=== PATIENT | male | born 1950 | race Caucasian/White ===

== ENCOUNTER 2017-04-03 02:46 | Emergency (ER) | payer OTHER ==
[~2017-04-03] VITALS: Ht 190.5 cm; Wt 125.0 kg
[~2017-04-03 02:46] MED LIST: ASPI81 PO; ENAL20TA PO; OMEP40CA2 PO; POTA1080 PO; PROC1TAB8 PO; SIMV20 PO; TEST1GEL5
[2017-04-03 02:50] VITALS: BP 187/90; PULSE 63; RESP 16; TEMP 97.7; O2SAT 97
[2017-04-03] MEDS ORDERED: SODIUM CHLOR 0.9% 1000 ML INJ 1,000 ML IV SCH (03:12)
[2017-04-03] MEDS ORDERED: MORPHINE SULFATE 4 MG/ML INJ IV PUSH ONE (03:15)
[2017-04-03] MEDS ORDERED: FAMOTIDINE 20 MG/2 ML VIAL IV PUSH ONE (03:15)
[2017-04-03] MEDS ORDERED: SODIUM CHLORIDE 0.9% FLUSH 10 ML FLUSH IV FLUSH PRN (03:15)
[2017-04-03] MEDS ORDERED: ONDANSETRON HCL 4 MG/2 ML VIAL IVP ONE (03:15)
--- NOTE | 2017-04-03 03:18 | PD ---
HPI Chief Complaint: GI Complaint Time Seen by Provider: 03:04 Travel History International Travel<30 days: No Contact w/Intl Traveler<30days: No Traveled to known affect area: No History of Present Illness HPI The patient is a 67-year-old male who presents emergency department for abdominal pain. The patient's abdominal pain started one week ago after he had several large meals of Father's Day weekend. The patient then developed some epigastric pain that is nonradiating. He did complain of mild bloating and some mild constipation, took Dulcolax which resolved his constipation. However, he continues to have some epigastric pain. 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 The patient stated he had a laboratory evaluation which was unremarkable. He was going to have an outpatient CT and ultrasound of the abdomen, however, his creatinine was mildly elevated and they did not order the test. He does have a history of previous endoscopy and colonoscopy, states his last one was a urine after ago, was normal per his report. He does have a remote history of GERD. He denies any known history pancreatitis, biliary colic, symptomatic cholelithiasis, or previous abdominal surgeries. He denies any fever, chills, or sweats. He denies any associated chest pain or shortness of breath. Symptoms are moderate, occasionally exacerbated by eating, and there are no current alleviating factors. PFSH Past Medical History Arthritis: Yes (L4-L5) Heart Rhythm Problems: No Cardiac Catheterization: No Cardiovascular Problems: Yes (HTN) High Cholesterol: Yes Congestive Heart Failure: No Cerebrovascular Accident: No Diabetes: No Diminished Hearing: No Gastrointestinal Disorders: Yes GERD: Yes (HX OF ) Hypertension: Yes Kidney Stones: Yes (LITHOTRIPSY) Respiratory: Yes (SLEEP APNEA) Immunizations Current: Yes Myocardial Infarction: No Sleep Apnea: Yes (CPAP) Triglycerides - High: Yes Past Surgical History Coronary Artery Bypass Graft: No Tonsillectomy: Yes Other Surgery: Yes (LITHOTRIPSY) Social History Alcohol Use: Yes (OCCASSIONAL) Tobacco Use: No Substance Use: No Allergies-Medications (Allergen,Severity, Reaction): Coded Allergies: Lidocaine (Verified Allergy, Severe, Vertigo, 04/03/17) Codeine (Verified Adverse Reaction, Mild, Nausea/Vomiting, 6/26/17) Reported Meds & Prescriptions Reported Meds & Active Scripts Active Reported Vascepa (Icosapent) 1 Gm Cap 1 Gm PO BID Enalapril (Enalapril Maleate) 20 Mg Tab 20 Mg PO BID Aspirin 81 Mg Chew 81 Mg CHEW DAILY Review of Systems Except as stated in HPI: all other systems reviewed are Neg General / Constitutional: No: Fever Cardiovascular: No: Chest Pain or Discomfort Respiratory: No: Shortness of Breath Gastrointestinal: Positive: Nausea, Abdominal Pain, Constipation, No: Vomiting , Diarrhea Genitourinary: No: Dysuria Physical Exam Narrative GENERAL: Awake, alert, pleasant 67-year-old male who appears his stated age is in no acute respiratory distress. SKIN: Focused skin assessment warm/dry. HEAD: Atraumatic. Normocephalic. EYES: Pupils equal and round. No scleral icterus. No injection or drainage. ENT: No nasal bleeding or discharge. Mucous membranes pink and moist. NECK: Trachea midline. No JVD. CARDIOVASCULAR: Regular rate and rhythm. No murmur appreciated. RESPIRATORY: No accessory muscle use. Clear to auscultation. Breath sounds equal bilaterally. GASTROINTESTINAL: Abdomen soft, mild epigastric tenderness. No rebound tenderness, guarding, rigidity. MUSCULOSKELETAL: No obvious deformities. No clubbing. No cyanosis. No edema. NEUROLOGICAL: Awake and alert. No obvious cranial nerve deficits. Motor grossly within normal limits. Normal speech. PSYCHIATRIC: Appropriate mood and affect; insight and judgment normal. Data Data Last Documented VS Vital Signs Date Time Temp Pulse Resp B/P Pulse Ox O2 Delivery O2 Flow Rate FiO2 04/03/17 03:29 16 95 Room Air 04/03/17 03:19 73 111/58 04/03/17 02:50 97.7 Orders Complete Blood Count With Diff (04/03/17 03:12) Comprehensive Metabolic Panel (04/03/17 03:12) Lipase (04/03/17 03:12) Lactic Acid (04/03/17 03:12) Ct Abd/Pel W/O Iv Contrast (04/03/17 03:12) Iv Access Insert/Monitor (04/03/17 03:12) Ecg Monitoring (04/03/17 03:12) Oximetry (04/03/17 03:12) Morphine Inj (Morphine Inj) (04/03/17 03:15) Ondansetron Inj (Zofran Inj) (04/03/17 03:15) Sodium Chlor 0.9% 1000 Ml Inj (Ns 1000 M (04/03/17 03:12) Sodium Chloride 0.9% Flush (Ns Flush) (04/03/17 03:15) Electrocardiogram (04/03/17 03:12) Famotidine Inj (Pepcid Inj) (04/03/17 03:15) Troponin I (04/03/17 03:12) Labs Laboratory Tests Test 04/03/17 03:30 White Blood Count 7.4 TH/MM3 Red Blood Count 5.94 MIL/MM3 Hemoglobin 17.2 GM/DL Hematocrit 50.9 % Mean Corpuscular Volume 85.7 FL Mean Corpuscular Hemoglobin 29.0 PG Mean Corpuscular Hemoglobin 33.8 % Concent Red Cell Distribution Width 13.7 % Platelet Count 233 TH/MM3 Mean Platelet Volume 9.0 FL Neutrophils (%) (Auto) 65.0 % Lymphocytes (%) (Auto) 23.8 % Monocytes (%) (Auto) 9.0 % Eosinophils (%) (Auto) 1.8 % Basophils (%) (Auto) 0.4 % Neutrophils # (Auto) 4.8 TH/MM3 Lymphocytes # (Auto) 1.8 TH/MM3 Monocytes # (Auto) 0.7 TH/MM3 Eosinophils # (Auto) 0.1 TH/MM3 Basophils # (Auto) 0.0 TH/MM3 CBC Comment DIFF FINAL Differential Comment Sodium Level 141 MEQ/L Potassium Level 4.0 MEQ/L Chloride Level 106 MEQ/L Carbon Dioxide Level 28.2 MEQ/L Anion Gap 7 MEQ/L Blood Urea Nitrogen 20 MG/DL Creatinine 1.63 MG/DL Estimat Glomerular Filtration 42 ML/MIN Rate Random Glucose 98 MG/DL Lactic Acid Level 1.2 mmol/L Calcium Level 9.7 MG/DL Total Bilirubin 0.7 MG/DL Aspartate Amino Transf 27 U/L (AST/SGOT) Alanine Aminotransferase 33 U/L (ALT/SGPT) Alkaline Phosphatase 94 U/L Troponin I LESS THAN 0.02 NG/ML Total Protein 8.0 GM/DL Albumin 4.0 GM/DL Lipase 142 U/L MDM Medical Decision Making Medical Screen Exam Complete: Yes Emergency Medical Condition: Yes Medical Record Reviewed: Yes Interpretation(s) EKG reveals normal sinus rhythm with a rate of 65. Inverted T-wave noted in lead 3. Laboratory Tests Test 04/03/17 03:30 White Blood Count 7.4 TH/MM3 Red Blood Count 5.94 MIL/MM3 Hemoglobin 17.2 GM/DL Hematocrit 50.9 % Mean Corpuscular Volume 85.7 FL Mean Corpuscular Hemoglobin 29.0 PG Mean Corpuscular Hemoglobin 33.8 % Concent Red Cell Distribution Width 13.7 % Platelet Count 233 TH/MM3 Mean Platelet Volume 9.0 FL Neutrophils (%) (Auto) 65.0 % Lymphocytes (%) (Auto) 23.8 % Monocytes (%) (Auto) 9.0 % Eosinophils (%) (Auto) 1.8 % Basophils (%) (Auto) 0.4 % Neutrophils # (Auto) 4.8 TH/MM3 Lymphocytes # (Auto) 1.8 TH/MM3 Monocytes # (Auto) 0.7 TH/MM3 Eosinophils # (Auto) 0.1 TH/MM3 Basophils # (Auto) 0.0 TH/MM3 CBC Comment DIFF FINAL Differential Comment Sodium Level 141 MEQ/L Potassium Level 4.0 MEQ/L Chloride Level 106 MEQ/L Carbon Dioxide Level 28.2 MEQ/L Anion Gap 7 MEQ/L Blood Urea Nitrogen 20 MG/DL Creatinine 1.63 MG/DL Estimat Glomerular Filtration 42 ML/MIN Rate Random Glucose 98 MG/DL Lactic Acid Level 1.2 mmol/L Calcium Level 9.7 MG/DL Total Bilirubin 0.7 MG/DL Aspartate Amino Transf 27 U/L (AST/SGOT) Alanine Aminotransferase 33 U/L (ALT/SGPT) Alkaline Phosphatase 94 U/L Troponin I LESS THAN 0.02 NG/ML Total Protein 8.0 GM/DL Albumin 4.0 GM/DL Lipase 142 U/L Last Impressions Abdomen/Pelvis CT 04/03/172 Signed Impressions: Service Date/Time: Monday, April 03, 2017 03:35 - CONCLUSION: 1. Multiple bilateral renal stones and renal cysts without hydronephrosis or ureteral stones, similar in appearance when compared to prior renal colic CT June 2016. 2. Mild heather appearance to the central mesentery of the abdomen which is nonspecific finding, but suggest possible mesenteritis. Huseyin Hunter MD Differential Diagnosis Differential diagnosis includes gastritis, peptic ulcer disease, pancreatitis, biliary colic, cholelithiasis, cholecystitis, hiatal hernia, inferior myocardial infarction, mesenteric ischemia. Narrative Course IV was established, labs are drawn and sent, and the patient was placed on cardiac telemetry monitoring and continuous pulse oximetry monitoring. EKG was ordered and interpreted. 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 Noncontrast CT of the abdomen and pelvis was ordered. The patient's labs are unremarkable, lipase and LFTs are unremarkable, creatinine is mildly elevated at 1.63. White count is normal. Patient is afebrile. Troponin is negative. CT reveals polycystic kidney disease and stable appearance of the kidney stones. There is a "heather appearance "to the mesentery, may suggest mesenteritis. The patient will be discharged home on pain medications, will be provided a copy of his CT results and lab results at discharge. He is advised to follow-up with his riverboat captain today. Diagnosis Primary Impression: Abdominal pain Qualified Code: R10.13 - Epigastric pain Additional Impression: Idiopathic sclerosing mesenteritis Patient Instructions: General Instructions Additional Instructions: Please provide the patient a copy of his CT results and lab results at discharge. Follow-up with her riverboat captain. Return if symptoms worsen or progress. Diet as tolerated. Med/Other Pt SpecificInfo: Prescription(s) given Scripts Hydrocodone-Acetaminophen ([place])5-325 mg Tab1 Tab PO Q6H PRN (PAIN) #15 TAB Ref 0 Prov:Luc Villa MD 04/03/17 Disposition: DISCHARGE HOME Condition: Stable Luc Villa MD Apr 03, 2017 03:18
[2017-04-03 03:19] VITALS: BP 111/58; PULSE 73; RESP 16; O2SAT 95
[2017-04-03] MEDS ORDERED: ASPI81CH CHEW (03:25)
[2017-04-03] MEDS ORDERED: ICOS1CAP PO (03:25)
[2017-04-03] MEDS ORDERED: ENAL20TA PO (03:25)
[2017-04-03 03:29] VITALS: RESP 16; O2SAT 95
[2017-04-03 03:42] LABS: AUTOMATED NEUTROPHIL # 4.8 TH/MM3 (1.8-7.7); BASOPHIL % 0.4 % (0.0-2.0); EOSINOPHIL # 0.1 TH/MM3 (0-0.4); EOSINOPHIL % 1.8 % (0.0-4.0); HEMATOCRIT 50.9 % (39.0-51.0); HEMO FLAGS DIFF FINAL; LYMPH % 23.8 % (9.0-44.0); LYMPHOCYTE # 1.8 TH/MM3 (1.0-4.8); MEAN CELL VOLUME 85.7 FL (80.0-100.0); MEAN CORPUSCULAR HGB CONC 33.8 % (32.0-36.0); PLATELET COUNT 233 TH/MM3 (150-450); RED BLOOD COUNT 5.94 MIL/MM3 (4.50-5.90); RED CELL DISTRIBUTION WIDTH 13.7 % (11.6-17.2); WHITE BLOOD COUNT 7.4 TH/MM3 (4.0-11.0)
[2017-04-03 04:09] LABS: ALKALINE PHOSPHATASE 94 U/L (45-117); TOTAL BILIRUBIN ADULT 0.7 MG/DL (0.2-1.0)
[2017-04-03 04:30] LABS: ALT (GPT) 33 U/L (12-78); ANION GAP 7 MEQ/L (5-15); AST (GOT) 27 U/L (15-37); BICARBONATE 28.2 MEQ/L (21.0-32.0); BLOOD UREA NITROGEN 20 MG/DL (7-18); CHLORIDE 106 MEQ/L (98-107); GLOMERULAR FILTRATION RATE 42 ML/MIN (>89); SODIUM (NA) 141 MEQ/L (136-145)
--- NOTE | 2017-04-03 04:52 | RADRPT ---
EXAM DATE/TIME: 04/03/2017 03:35 [facility] COMPARISON: CT ABDOMEN & PELVIS W/O CONTRAST, July 04, 2016, 4:46. INDICATIONS : Epigastric pain x 3 days. ORAL CONTRAST: No oral contrast ingested. RADIATION DOSE: 21.83 CTDIvol (mGy) MEDICAL HISTORY : Hypertension. Gastroesophageal reflux disease. SURGICAL HISTORY : Tonsillectomy. ENCOUNTER: Initial ACUITY: 3 days PAIN SCALE: 4/10 LOCATION: epigastric TECHNIQUE: Volumetric scanning of the abdomen and pelvis was performed. Using automated exposure control and ad justment of the mA and/or kV according to patient size, radiation dose was kept as low as reasonably achievable to obtain optimal diagnostic quality images. DICOM format image data is available electro nically for review and comparison. FINDINGS: Prior renal colic CT in June 2016 are demonstrated bilateral renal cysts and bilateral calcified renal stones. On today's examination, the multiple bilateral renal cysts, including bilateral parap elvic cysts, are stable in appearance. One cyst the upper pole of the right kidney and a tiny cyst i n the cortex of the left kidney is hyperdense, unchanged. There are multiple calcified stones in the lower pole collecting system of both kidneys with the largest stone on the right-sided measuring 6 m m and the largest stone on the left side measuring 1.4 cm. The size of the stones and number of ston es and is stable. No evidence of hydronephrosis. No calcified stones in either ureter. No calcific ations within the lumen of the urinary bladder. Numerous tiny calcified phleboliths in the pelvis similar in configuration to prior exam. No evidenc e of free fluid. No dilated loops of small or large bowel. No calcified gallstones. The adrenal gl ands pancreas, and spleen are grossly unremarkable. No evidence of free fluid. The visualized lower lungs are clear. Degenerative changes of the lower lumbar spine. There is some mild increased density to the fat of the mesentery of the central abdomen (heather mesent norma); this suggests possible mesenteritis. CONCLUSION: 1. Multiple bilateral renal stones and renal cysts without hydronephrosis or ureteral stones, similar in appearance when compared to prior renal colic CT June 2016. 2. Mild heather appearance to the central mesentery of the abdomen which is nonspecific finding, but lacey ggest possible mesenteritis. Huseyin Hunter MD on April 03, 2017 at 4:45 Board Certified Radiologist. This report was verified electronically.
[2017-04-03] MEDS ORDERED: NORC5TAB PO (05:05)
--- NOTE | 2017-04-04 07:45 | EKG ---
Date Performed: 04/03/2017 Time Performed: 04:31:36 PTAGE: 67 years EKG: Sinus rhythm NORMAL ECG PREVIOUS TRACING : 07/04/2016 04.12 DOCTOR: Tanisha Souza Interpretating Date/Time 04/04/2017 07:42:27
== END 2017-04-03 05:25 | disposition home or self-care (01) ==
LOC: NEPE 02:46
DX: R10.13 Epigastric pain (principal); K65.4 Sclerosing mesenteritis; Q61.3 Polycystic kidney, unspecified; N20.0 Calculus of kidney; I10 Essential (primary) hypertension; E78.00 Pure hypercholesterolemia, unspecified; K21.9 Gastro-esophageal reflux disease without esophagitis; G47.30 Sleep apnea, unspecified; Z79.899 Other long term (current) drug therapy
CPT/HCPCS: 74176; 80053; 83605; 83690; 84484; 85025; 93005; 96374; 96375; 99285; J2270; J2405; J7030

== ENCOUNTER 2018-01-23 06:43 | Emergency (ER) | payer OTHER ==
[~2018-01-23] VITALS: Ht 190.5 cm; Wt 130.0 kg
[~2018-01-23 06:43] MED LIST changes: +ASPI-516 CHEW; -ASPI81 PO; +ICOS1CAP PO; +NORC5TAB PO; -OMEP40CA2 PO; -POTA1080 PO; -PROC1TAB8 PO; -SIMV20 PO; -TEST1GEL5
[2018-01-23 06:46] VITALS: BP 189/87; PULSE 82; RESP 18; TEMP 98.3; O2SAT 99
[2018-01-23] MEDS ORDERED: PANTOPRAZOLE SODIUM 40 MG VIAL IV PUSH ONE (07:15)
[2018-01-23] MEDS ORDERED: SODIUM CHLORIDE 0.9% FLUSH 10 ML FLUSH IVF PRN (07:15)
--- NOTE | 2018-01-23 07:17 | PD ---
HPI Chief Complaint: GI Complaint Time Seen by Provider: 07:08 Travel History International Travel<30 days: No Contact w/Intl Traveler<30days: No Traveled to known affect area: No History of Present Illness HPI 67 y/o male states over the past couple years he has been having issues with severe reflux with associated epigastric abdominal pain. He states that it has been worse over the past couple of days. He states Dr. Mayfield his GI doctor did a scope of his stomach 2 years ago and did not want to repeat it because he did not think much would change. He states he thinks it just showed reflux. He states that they did a HIDA scan and he followed with Dr. Espinoza as his EF was low but given his symptoms they elected to hold on surgery. He states he also regularly follows with Dr. Reid for routine cardiac workup after he had a syncopal event after receiving a GI cocktail with lidocaine a couple years ago. He states his last stress test was 2 months ago and was normal. He denies any significant cardiac history. He denies any associated chest pain or other concurrent complaints. Quality is burning. Severity is fluctuating and currently moderate. He denies other concurrent complaints at this time. Duration is intermittent over the past couple of years. PFSH Past Medical History Arthritis: Yes (L4-L5) Cardiovascular Problems: Yes (HTN) High Cholesterol: Yes Diminished Hearing: No Gastrointestinal Disorders: Yes GERD: Yes (HX OF ) Hypertension: Yes Kidney Stones: Yes (LITHOTRIPSY) Respiratory: Yes (SLEEP APNEA) Immunizations Current: Yes Sleep Apnea: Yes (CPAP) Triglycerides - High: Yes Past Surgical History Tonsillectomy: Yes Other Surgery: Yes (LITHOTRIPSY) Social History Alcohol Use: Yes (OCCASSIONAL) Tobacco Use: No Substance Use: No Allergies-Medications (Allergen,Severity, Reaction): Coded Allergies: lidocaine (Unverified Allergy, Severe, Vertigo, 01/23/18) codeine (Unverified Adverse Reaction, Mild, Nausea/Vomiting, 01/23/18) Reported Meds & Prescriptions Reported Meds & Active Scripts Active [place] (Hydrocodone-Acetaminophen) 5-325 mg Tab 1 Tab PO Q6H PRN Reported Vascepa (Icosapent) 1 Gm Cap 1 Gm PO BID Enalapril (Enalapril Maleate) 20 Mg Tab 20 Mg PO BID Aspirin 81 Mg Chew 81 Mg CHEW DAILY Review of Systems Except as stated in HPI: all other systems reviewed are Neg Physical Exam Narrative GENERAL: 67-year-old male in no apparent distress, Well-appearing SKIN: Focused skin assessment warm/dry. HEAD: Atraumatic. Normocephalic. EYES: Pupils equal and round. No scleral icterus. No injection or drainage. ENT: No nasal bleeding or discharge. Mucous membranes pink and moist. NECK: Trachea midline. CARDIOVASCULAR: Regular rate and rhythm. No murmur appreciated. RESPIRATORY: No accessory muscle use. Clear to auscultation. Breath sounds equal bilaterally. GASTROINTESTINAL: Abdomen soft, non-tender, nondistended. MUSCULOSKELETAL: No obvious deformities. No clubbing. No cyanosis. NEUROLOGICAL: Awake and alert. No obvious cranial nerve deficits. Motor grossly within normal limits. Normal speech. PSYCHIATRIC: Appropriate mood and affect; insight and judgment normal. Data Data Last Documented VS Vital Signs Date Time Temp Pulse Resp B/P (MAP) Pulse Ox O2 Delivery O2 Flow Rate FiO2 01/23/18 07:58 96 Room Air 01/23/18 06:46 98.3 82 18 189/87 (121) Orders Orders Electrocardiogram (01/23/18 07:08) B-Type Natriuretic Peptide (01/23/18 07:08) Ckmb (Isoenzyme) Profile (01/23/18 07:08) Complete Blood Count With Diff (01/23/18 07:08) Comprehensive Metabolic Panel (01/23/18 07:08) Magnesium (Mg) (01/23/18 07:08) Prothrombin Time / Inr (Pt) (01/23/18 07:08) Act Partial Throm Time (Ptt) (01/23/18 07:08) Troponin I (01/23/18 07:08) Lipase (01/23/18 07:08) Chest, Single Ap (01/23/18 07:08) Ecg Monitoring (01/23/18 07:08) Bilateral Bp Monitoring (01/23/18 07:08) Iv Access Insert/Monitor (01/23/18 07:08) Oximetry (01/23/18 07:08) Sodium Chloride 0.9% Flush (Ns Flush) (01/23/18 07:15) Us Abdomen Gallbladder (01/23/18 ) Pantoprazole Inj (Protonix Inj) (01/23/18 07:15) CKMB (01/23/18 07:15) CKMB% (01/23/18 07:15) Urinalysis - C+S If Indicated (01/23/18 08:46) Ct Abd/Pel W/O Iv Contrast (01/23/18 09:00) Ed Discharge Order (01/23/18 11:19) Labs Laboratory Tests Test 01/23/18 07:15 01/23/18 09:40 White Blood Count 6.2 TH/MM3 Red Blood Count 5.26 MIL/MM3 Hemoglobin 15.5 GM/DL Hematocrit 45.4 % Mean Corpuscular Volume 86.2 FL Mean Corpuscular Hemoglobin 29.5 PG Mean Corpuscular Hemoglobin Concent 34.2 % Red Cell Distribution Width 13.8 % Platelet Count 216 TH/MM3 Mean Platelet Volume 9.1 FL Neutrophils (%) (Auto) 66.6 % Lymphocytes (%) (Auto) 23.6 % Monocytes (%) (Auto) 7.6 % Eosinophils (%) (Auto) 1.6 % Basophils (%) (Auto) 0.6 % Neutrophils # (Auto) 4.1 TH/MM3 Lymphocytes # (Auto) 1.5 TH/MM3 Monocytes # (Auto) 0.5 TH/MM3 Eosinophils # (Auto) 0.1 TH/MM3 Basophils # (Auto) 0.0 TH/MM3 CBC Comment DIFF FINAL Differential Comment Prothrombin Time 10.6 SEC Prothromb Time International Ratio 1.0 RATIO Activated Partial Thromboplast Time 26.8 SEC Blood Urea Nitrogen 24 MG/DL Creatinine 1.73 MG/DL Random Glucose 109 MG/DL Total Protein 7.3 GM/DL Albumin 3.6 GM/DL Calcium Level 8.8 MG/DL Magnesium Level 1.8 MG/DL Alkaline Phosphatase 80 U/L Aspartate Amino Transf (AST/SGOT) 28 U/L Alanine Aminotransferase (ALT/SGPT) 26 U/L Total Bilirubin 0.6 MG/DL Sodium Level 143 MEQ/L Potassium Level 4.5 MEQ/L Chloride Level 111 MEQ/L Carbon Dioxide Level 23.4 MEQ/L Anion Gap 9 MEQ/L Estimat Glomerular Filtration Rate 40 ML/MIN Total Creatine Kinase 221 U/L Creatine Kinase MB 3.2 NG/ML Troponin I LESS THAN 0.02 NG/ML B-Type Natriuretic Peptide 29 PG/ML Lipase 153 U/L Urine Color YELLOW Urine Turbidity CLEAR Urine pH 7.0 Urine Specific [place] 1.015 Urine Protein NEG mg/dL Urine Glucose (UA) NEG mg/dL Urine Ketones NEG mg/dL Urine Occult Blood NEG Urine Nitrite NEG Urine Bilirubin NEG Urine Urobilinogen LESS THAN 2.0 MG/DL Urine Leukocyte Esterase NEG Urine RBC 1 /hpf Urine WBC LESS THAN 1 /hpf Urine Mucus FEW /lpf Microscopic Urinalysis Comment CULT NOT INDICATED MDM Medical Decision Making Medical Screen Exam Complete: Yes Emergency Medical Condition: Yes Medical Record Reviewed: Yes (Past history confirmed, recent records reviewed) Interpretation(s) CBC & BMP Diagram 01/23/18 07:15 Total Protein 7.3, Albumin 3.6, Calcium Level 8.8, Magnesium Level 1.8, Alkaline Phosphatase 80, Aspartate Amino Transf (AST/SGOT) 28, Alanine Aminotransferase (ALT/SGPT) 26, Total Bilirubin 0.6 Last 24 hours Impressions Abdomen/Pelvis CT 01/23/18 0900 Signed Impressions: Service Date/Time: Tuesday, January 23, 2018 09:06 - CONCLUSION: 1. Bilateral renal cysts some of which are complex. 2. Bilateral nonobstructing renal calculi. 3. [place] mesentery, stable. Gus Nixon MD Chest X-Ray 01/23/18 0708 Signed Impressions: Service Date/Time: Tuesday, January 23, 2018 07:31 - CONCLUSION: No acute disease. Gus Nixon MD Gall Bladder Ultrasound 01/23/18 0000 Signed Impressions: Service Date/Time: Tuesday, January 23, 2018 07:30 - CONCLUSION: 1. No cholelithiasis or sonographic evidence for acute cholecystitis as questioned. 2. Mild prominence of the right renal collecting system in this patient with history of renal calculi. Consider CT examination for further evaluation, particularly if patient's abdominal pain is consistent with renal colic. 3. Echogenic enlarged liver consistent with hepatic steatosis versus medical liver disease. Vamshi Dixon MD Differential Diagnosis Gastritis, cholelithiasis, musculoskeletal, atypical cardiac Narrative Course Will check blood work, chest x-ray, EKG, gallbladder ultrasound and dose with Protonix and reevaluate ED workup shows mild increase in renal insufficiency. Gallbladder ultrasound shows area of dilation with kidney so we will proceed with CT imaging CT imaging stable. Patient updated. Patient has been having ongoing intermittent epigastric pain with belching for the past couple of years. This is likely related to his prior gastritis issues. Patient denies any new complaints and states that they are feeling better. Patient happy with care, all questions answered. Patient knows that follow up is incumbent on them and to return to the emergency room immediately if new or worsening symptoms develop. Patient given strict return precautions, vitals reviewed and are normal , agrees to further workup as an outpatient. Diagnosis Primary Impression: Abdominal pain Qualified Codes: R10.13 - Epigastric pain Patient Instructions: General Instructions Additional Instructions: take zantac twice a day, follow with primary this week, set up an appointment with Dr mayfield, return as needed Med/Other Pt SpecificInfo: No Change to Meds Disposition: 01 DISCHARGE HOME Condition: Stable Mary Leong MD Jan 23, 2018 07:17
[2018-01-23 07:47] LABS: AUTOMATED NEUTROPHIL # 4.1 TH/MM3 (1.8-7.7); BASOPHIL % 0.6 % (0.0-2.0); EOSINOPHIL # 0.1 TH/MM3 (0-0.4); EOSINOPHIL % 1.6 % (0.0-4.0); HEMATOCRIT 45.4 % (39.0-51.0); HEMOGLOBIN 15.5 GM/DL (13.0-17.0); LYMPH % 23.6 % (9.0-44.0); LYMPHOCYTE # 1.5 TH/MM3 (1.0-4.8); MEAN CELL VOLUME 86.2 FL (80.0-100.0); MEAN CORPUSCULAR HEMOGLOBIN 29.5 PG (27.0-34.0); MEAN CORPUSCULAR HGB CONC 34.2 % (32.0-36.0); MEAN PLATELET VOLUME 9.1 FL (7.0-11.0); MONO % 7.6 % (0.0-8.0); MONOCYTE # 0.5 TH/MM3 (0-0.9); NEUT % 66.6 % (16.0-70.0); PLATELET COUNT 216 TH/MM3 (150-450); RED BLOOD COUNT 5.26 MIL/MM3 (4.50-5.90); RED CELL DISTRIBUTION WIDTH 13.8 % (11.6-17.2); WHITE BLOOD COUNT 6.2 TH/MM3 (4.0-11.0)
[2018-01-23 07:52] LABS: PROTHROMBIN TIME - PATIENT 10.6 SEC (9.8-11.6)
[2018-01-23 07:58] VITALS: O2SAT 96
--- NOTE | 2018-01-23 07:59 | RADRPT ---
EXAM DATE/TIME: 01/23/2018 07:31 [facility] COMPARISON: CHEST SINGLE AP, July 04, 2016, 3:55. INDICATIONS : Shortness of breath. MEDICAL HISTORY : Hypertension. Gastroesophageal reflux disease. SURGICAL HISTORY : Tonsillectomy. ENCOUNTER: Initial ACUITY: 1 day PAIN SCORE: 0/10 LOCATION: Bilateral chest FINDINGS: A single view of the chest demonstrates diminished lung volumes without evidence of mass, infiltrate or effusion. The cardiomediastinal contours are unremarkable. Osseous structures are intact. CONCLUSION: No acute disease. Gus Nixon MD on January 23, 2018 at 7:57 Board Certified Radiologist. This report was verified electronically.
[2018-01-23 08:09] LABS: ALKALINE PHOSPHATASE 80 U/L (45-117); TOTAL BILIRUBIN ADULT 0.6 MG/DL (0.2-1.0); TOTAL PROTEIN 7.3 GM/DL (6.4-8.2); TROPONIN I LESS THAN 0.02 NG/ML (0.02-0.05)
[2018-01-23 08:15] LABS: ALBUMIN 3.6 GM/DL (3.4-5.0); ALT (GPT) 26 U/L (12-78); AST (GOT) 28 U/L (15-37); BICARBONATE 23.4 MEQ/L (21.0-32.0); BLOOD UREA NITROGEN 24 MG/DL (7-18); CALCIUM 8.8 MG/DL (8.5-10.1); CHLORIDE 111 MEQ/L (98-107); CREATININE 1.73 MG/DL (0.60-1.30); GLOMERULAR FILTRATION RATE 40 ML/MIN (>89); GLUCOSE,RANDOM 109 MG/DL (74-106); MAGNESIUM 1.8 MG/DL (1.5-2.5); SODIUM (NA) 143 MEQ/L (136-145)
--- NOTE | 2018-01-23 08:24 | RADRPT ---
EXAM DATE/TIME: 01/23/2018 07:30 [facility] COMPARISON: CT ABDOMEN & PELVIS W/O CONTRAST, April 03, 2017, 3:35. EXTERNAL COMPARISON : [facility], CT ABDOMEN & PELVIS W/O CONTRAST, May 23, 2017, December 30, 2015, March 23, 2010 . INDICATIONS : Right upper quadrant pain. MEDICAL HISTORY : Hypercholesterolemia. Arthritis. Renal calculi. Sleep apnea. GERD. HTN. SURGICAL HISTORY : Tonsillectomy. Lithotripsy. Orthopedic surgery; left knee and hand. ENCOUNTER: Initial ACUITY: 1 day PAIN SCORE: 5/10 LOCATION: Right upper quadrant MEASUREMENTS: LIVER: 21.0 cm length COMMON DUCT: 3 mm RIGHT KIDNEY: 15.3 x 8.7 x 8.7 cm FINDINGS: LIVER: Mild diffusely increased hepatic echogenicity with hepatomegaly. No focal mass or intrahepatic ductal dilatation. COMMON DUCT: No intraluminal mass or stone visualized. GALLBLADDER: Contains no stones, demonstrates no wall thickening or pericholecystic fluid. PANCREAS: Obscured by bowel gas. RIGHT KIDNEY: Redemonstration of multiple right renal cysts similar to prior CT examination. The largest measures 5 .5 x 5.3 x 5.3 cm in the superior pole. Previous CT exam had demonstrated multiple renal calculi. The se are not as well demonstrated on ultrasound. There is however mild to prominence of the renal pelvi s. CONCLUSION: 1. No cholelithiasis or sonographic evidence for acute cholecystitis as questioned. 2. Mild prominence of the right renal collecting system in this patient with history of renal calculi . Consider CT examination for further evaluation, particularly if patient's abdominal pain is consist ent with renal colic. 3. Echogenic enlarged liver consistent with hepatic steatosis versus medical liver disease. Vamshi Dixon MD on January 23, 2018 at 8:13 Board Certified Radiologist. This report was verified electronically.
--- NOTE | 2018-01-23 09:32 | RADRPT ---
EXAM DATE/TIME: 01/23/2018 09:06 [place] COMPARISON: CT ABDOMEN & PELVIS W/O CONTRAST, April 03, 2017, 3:35. INDICATIONS : Upper abdominal and back pain. Constipation. ORAL CONTRAST: No oral contrast ingested. RADIATION DOSE: 18.17 CTDIvol (mGy) MEDICAL HISTORY : Hypertension. SURGICAL HISTORY : None. ENCOUNTER: Initial ACUITY: 1 week PAIN SCALE: 8/10 LOCATION: Bilateral upper quadrant TECHNIQUE: Volumetric scanning of the abdomen and pelvis was performed. Using automated exposure control and ad justment of the mA and/or kV according to patient size, radiation dose was kept as low as reasonably achievable to obtain optimal diagnostic quality images. DICOM format image data is available electro nically for review and comparison. FINDINGS: LOWER LUNGS: The visualized lower lungs are clear. LIVER: Homogeneous density without lesion. There is no dilation of the biliary tree. No calcified gallston es. SPLEEN: Normal size without lesion. PANCREAS: Within normal limits. KIDNEYS: Normal in size and shape. There is no mass or hydronephrosis. Bilateral nonobstructing renal calculi measuring 3-15 mm. Bilateral renal densities. Subcentimeter hyperdense lesion superior pole right ki dney is unchanged. ADRENAL GLANDS: Within normal limits. VASCULAR: There is no aortic aneurysm. BOWEL/MESENTERY: The stomach, small bowel, and colon demonstrate no acute abnormality. There is no free intraperitone al air or fluid. [place]ba mesentery with small scattered mesenteric lymph nodes, stable. ABDOMINAL WALL: Within normal limits. RETROPERITONEUM: There is no lymphadenopathy. BLADDER: No wall thickening or mass. REPRODUCTIVE: Within normal limits. INGUINAL: There is no lymphadenopathy or hernia. MUSCULOSKELETAL: Degenerative changes lumbar spine and both hips. CONCLUSION: 1. Bilateral renal cysts some of which are complex. 2. Bilateral nonobstructing renal calculi. 3. [place] mesentery, stable. Gus Nixon MD on January 23, 2018 at 9:24 Board Certified Radiologist. This report was verified electronically.
[2018-01-23 10:46] LABS: BILIRUBIN, URINE NEG (NEG); BLOOD, URINE NEG (NEG); GLUCOSE,URINE NEG (NEG); KETONE, URINE NEG (NEG); MUCUS URINE FEW /lpf (OCC); NITRITE,URINE NEG (NEG); URINE COLOR YELLOW (YELLW/STRAW); URINE LEUKOCYTE ESTERASE NEG (NEG)
[2018-01-23 11:24] VITALS: BP 170/81
--- NOTE | 2018-01-24 23:25 | EKG ---
Date Performed: 01/23/2018 Time Performed: 07:24:20 PTAGE: 67 years EKG: Sinus rhythm WITH OCCASIONAL VENTRICULAR PREMATURE COMPLEXES BORDERLINE ECG PREVIOUS TRACING : 04/03/2017 04.31 Since the previous tracing, no significant change noted DOCTOR: Arnulfo Oglesby Interpretating Date/Time 01/24/2018 23:23:13
== END 2018-01-23 11:32 | disposition home or self-care (01) ==
LOC: NEPC 06:43
DX: R10.13 Epigastric pain (principal); I10 Essential (primary) hypertension; Z79.899 Other long term (current) drug therapy
CPT/HCPCS: 71045; 74176; 76705; 80053; 81001; 82550; 82552; 83690; 83735; 83880; 84484; 85025; 85610; 85730; 93005; 96374; 99285; C9113